=== PATIENT | female | born 1955 | race Caucasian/White ===

== ENCOUNTER → 2016-06-04 | Outpatient (CLI) | payer OTHER ==
[2016-06-04 18:13] LABS: THYROID STIMULATING HORMONE 3.26 uIu/ml (0.300-4.500)
[2016-06-04 18:19] LABS: BASO % 0.7 %; BASO ABS # 0.04 K/uL (0-0.2); COMPLETE YES; EOS % 3.1 %; HEMATOCRIT 41.5 % (37-47); IG% 0.3 %; LYMPH % 28.9 %; MEAN CELL VOLUME 84.9 fL (80-100); MEAN PLATELET VOLUME 10.2 fL (7.4-10.4); MONO % 8.2 %; NEUT % 58.8 %; PLATELET COUNT 270 K/uL (130-400); RED BLOOD COUNT 4.89 M/uL (4.2-5.4); WHITE BLOOD COUNT 5.88 K/uL (4.8-10.8)
[2016-06-04 18:27] LABS: RATIO 5.6 mcg/mg (0-30.0)
[2016-06-05 05:48] LABS: ESTIMATED AVERAGE GLUCOSE 126 mg/dl; HA1C FLAG Normal (Normal)
== END | disposition home or self-care (01) ==
LOC: C.LABMFLN 10:02
PROVIDERS: ATTEND Family Medicine
DX: R73.01 Impaired fasting glucose (principal); D64.9 Anemia, unspecified

== ENCOUNTER → 2017-02-05 | Outpatient (CLI) | payer OTHER ==
[2017-02-05 14:07] LABS: ESTIMATED AVERAGE GLUCOSE 128 mg/dl; HA1C FLAG Normal (Normal)
== END | disposition home or self-care (01) ==
LOC: C.LABMFLN 11:43
PROVIDERS: ATTEND Family Medicine
DX: R73.01 Impaired fasting glucose (principal); E11.22 Type 2 diabetes mellitus with diabetic chronic kidney disease; N18.2 Chronic kidney disease, stage 2 (mild)

== ENCOUNTER → 2017-07-24 | Outpatient (CLI) | payer OTHER ==
[2017-07-24 19:11] LABS: ALT/SGPT 31 U/L (12-78); BLOOD UREA NITROGEN 22 mg/dl (7-18); CALCIUM 9.2 mg/dl (8.5-10.1); CARBON DIOXIDE 30 mmol/L (21-32); CREATININE 1.18 mg/dl (0.60-1.20); GLUCOSE 86 mg/dl (70-99); POTASSIUM 4.2 mmol/L (3.5-5.1); SODIUM 137 mmol/L (136-145)
[2017-07-24 19:21] LABS: CHOLESTEROL 203 mg/dl (0-200); LDL CHOLESTEROL (DIRECT) 130 mg/dl
[2017-07-25 07:40] LABS: HEMOGLOBIN A1C 6.2 % (4.5-5.6)
== END | disposition home or self-care (01) ==
LOC: C.LABMFLN 11:47
PROVIDERS: ATTEND Family Medicine
DX: E11.22 Type 2 diabetes mellitus with diabetic chronic kidney disease (principal); N18.2 Chronic kidney disease, stage 2 (mild)

== ENCOUNTER 2020-08-08 08:30 | Inpatient (IN) ==
--- NOTE | 2020-07-20 15:48 | PAT Medication Instructions ---
Medication Instructions Date of Service July 20, 2020 Home Medications Medication Instructions Recorded hydrocodone 7.5 mg-acetaminophen 2 tab PO HS PRN #30 tab 09/27/19 325 mg tablet metformin 500 mg tablet 500 mg PO QAM #30 tab 04/05/20 lisinopril 5 mg tablet 5 mg PO QAM #90 tab 06/04/20 benztropine 0.5 mg tablet 0.5 mg PO BID #180 tab 06/22/20 hydrocodone 7.5 mg-acetaminophen 325 mg tablet 2 tab PO HS PRN bupropion HCl 150 mg PO QAM cimetidine 800 mg PO QAM paroxetine HCl 60 mg PO PM metformin 500 mg tablet 500 mg PO QAM lisinopril 5 mg tablet 5 mg PO QAM benztropine 0.5 mg tablet 0.5 mg PO BID acetaminophen 325 mg PO QID PRN atorvastatin 10 mg PO QAM cetirizine [Allergy Relief (cetirizine)] 10 mg PO QAM ibuprofen 800 mg PO Q6H PRN levothyroxine 25 mcg PO QAM ASK your surgeon for instructions ibuprofen 800 mg PO Q6H PRN DO NOT take the morning of surgery metformin 500 mg tablet 500 mg PO QAM lisinopril 5 mg tablet 5 mg PO QAM cetirizine [Allergy Relief (cetirizine)] 10 mg PO QAM Take morning of surgery With a small sip of water, OTHERWISE NOTHING TO EAT OR DRINK AFTER MIDNIGHT: bupropion HCl 150 mg PO QAM cimetidine 800 mg PO QAM acetaminophen 325 mg PO QID PRN (okay to take up to 4 hours prior to surgery if needed) atorvastatin 10 mg PO QAM levothyroxine 25 mcg PO QAM benztropine 0.5 mg tablet 0.5 mg PO BID Take evening before surgery hydrocodone 7.5 mg-acetaminophen 325 mg tablet 2 tab PO HS PRN (if needed) paroxetine HCl 60 mg PO PM benztropine 0.5 mg tablet 0.5 mg PO BID acetaminophen 325 mg PO QID PRN (if needed) Other Notes If you have any questions please call us at [phone] or [phone] or [phone] or [phone]
--- NOTE | 2020-07-24 11:38 | Anesthesiology Consultation ---
Date of Service July 24, 2020 Assessment & Plan (1) Encounter for pre-operative examination: - COVID screening: Per assessment on 07/24: Travel screen negative, no known COVID-19 positive contacts or current COVID-19 related symptoms. Surgeon arranging preop COVID testing (scheduled 08/02; [facility]). Awaiting results. - Check BSG AM DOS - Possible difficult intubation: d/t anatomy and decreased cervical extension Chart Review Chart Review: Acceptable Risk for Surgery (pending surgeon-ordered PCP clearance) and Patient seen in Pre Admission Testing Teaching & Discussion Pre-Anesthesia Teaching/Discussion Notes: Instructed NPO after midnight before surgery,except medications with 15 cc of water. Medication instructions provided according to the PAT guidelines. History Surgery Operation Date: 08/08/20 11:05 Proposed Procedures p L4-L5 Posterior Decompression Fusion Instrumentation - George John DO Height/Weight Height: 5 ft 4.5 in Weight: 113.5 kg Allergies Allergy/AdvReac Type Severity Reaction Status Date / Time morphine Allergy Severe Difficulty Verified 07/10/20 11:16 Breathing Penicillins Allergy Unknown Hives, Rash Verified 07/24/20 11:34 Medications Home Medications Medication Instructions Recorded Confirmed Last Taken hydrocodone 7.5 mg-acetaminophen 2 tab PO HS PRN #30 tab 09/27/19 07/10/20 Unknown 325 mg tablet bupropion HCl 150 mg PO QAM 03/29/20 07/10/20 Unknown cimetidine 800 mg PO QAM 03/29/20 07/10/20 Unknown paroxetine HCl 60 mg PO PM 03/29/20 07/10/20 Unknown metformin 500 mg tablet 500 mg PO QAM #30 tab 04/05/20 07/10/20 Unknown lisinopril 5 mg tablet 5 mg PO QAM #90 tab 06/04/20 07/10/20 Unknown benztropine 0.5 mg tablet 0.5 mg PO BID #180 tab 06/22/20 07/10/20 Unknown acetaminophen 325 mg PO QID PRN 07/10/20 07/10/20 Unknown atorvastatin 10 mg PO QAM 07/10/20 07/10/20 Unknown cetirizine [Allergy Relief 10 mg PO QAM 07/10/20 07/10/20 Unknown (cetirizine)] ibuprofen 800 mg PO Q6H PRN 07/10/20 07/10/20 Unknown levothyroxine 25 mcg PO QAM 07/10/20 07/10/20 Unknown Past Medical History Medical History (Updated 07/24/20 @ 11:57 by Sindy Reed) Anxiety Asthma controlled, no inhalers Carpal tunnel syndrome R/L Degenerative disc disease Depression (Benztropine to use in conjunction with depression medications) Diabetes mellitus, type 2 NIDDM GERD (gastroesophageal reflux disease) controlled Hyperlipidemia Hypertension Hypothyroidism Morbid obesity Osteoarthritis Overactive bladder Uterine cancer 6 yrs ago > hysterectomy, no chemo Exercise / Class Metabolic Activity II 4-5 Yardwork/Stairs/Walk up hill (generally one flight of stairs (no chest pain, no sob) but if significant LE radiculopathy at time, does have occasional SOB with flight of stairs) Past Family History Family History Mother Myocardial infarction Cancer Diabetes Father Heart disease Brother Diabetes Past Surgical History Surgical History History of delivery x2 History of colonoscopy History of hysterectomy History of strabismus surgery [place] teeth extracted Past Anesthesia History No Hx of Anesthesia Complications and No Family Hx of Anesthesia Complications History of PONV No Hx of PONV and No Hx of Motion Sickness Social History Smoking Status: Never smoker Do You Dip or Chew Tobacco: No Hx Alcohol Use: No Hx Substance Use: No substance use type: does not use Review of Systems Patient denies chest pain, shortness of breath, dyspnea on exertion, joint pain, reflux, cough, wheezing, palpitations. Physical Exam Vital Signs VITALS BP 118/79 P 79 TEMP 98.6 SP02 94%RA RESP 16 PHYSICAL Decreased cervical extension range of motion. Full TMJ range of motion. TMD 3.5 finger breaths Mallampati Score 4 (small oral opening) Dentition: missing side Lungs: clear throughout to auscultation Cardiac: regular rate and rhythm, no murmurs noted Spine: normal Carotid arteries: negative bruit Extremities: no edema Thick neck Testing Laboratory Results 07/24/20 12:08 07/24/20 12:08 PT 10.1 Seconds (9.0-12.0) 07/24/20 12:08 INR 1.0 (0.9-1.1) 07/24/20 12:08 APTT 26.8 Seconds (21.0-31.0) 07/24/20 12:08 Urine Color Yellow 07/24/20 12:08 Urine Appearance Clear (Clear) 07/24/20 12:08 Urine pH 5.5 (4.5-7.5) 07/24/20 12:08 Ur Specific [place] 1.022 (1.000-1.030) 07/24/20 12:08 Urine Protein Negative (Negative) 07/24/20 12:08 Urine Glucose (UA) Negative (Negative) 07/24/20 12:08 Urine Ketones Negative (Negative) 07/24/20 12:08 Urine Nitrite Negative (Negative) 07/24/20 12:08 Ur Leukocyte Esterase Negative (Negative) 07/24/20 12:08 Blood Type A Positive 07/24/20 12:08 Antibody Screen NEGATIVE 07/24/20 12:08 03/07/20 HGBA1C 6.6% Electrocardiogram Date: 04/17/20 Findings: + NSR @ (75) Chest X-Ray Date: 04/17/20 Findings: + NAD
[2020-07-24 13:04] LABS: Basophils # (auto) 0.04 K/uL (0-0.2); Basophils % (auto) 0.8 %; Eosinophils # (auto) 0.17 K/uL (0-0.5); Eosinophils % (auto) 3.2 %; Lymphocytes # (auto) 1.08 K/uL (1.2-3.4); Lymphocytes % (auto) 20.4 %; Mean Corpuscular Hemoglobin 28.2 pg (25-34); Mean Corpuscular Hgb Conc 33.3 g/dL (32-36); Mean Corpuscular Volume 84.6 fL (80-100); Mean Platelet Volume 10.7 fL (7.4-10.4); Monocytes # (auto) 0.49 K/uL (0.11-0.59); Monocytes % (auto) 9.2 %; Neutrophils # (auto) 3.52 K/uL (1.4-6.5); Neutrophils % (auto) 66.4 %; Platelet Count 293 K/uL (130-400); RDW Coefficient of Variation 14.5 % (11.5-14.5); Red Blood Count 4.61 M/uL (4.2-5.4)
[2020-07-24 13:10] LABS: BUN Creatinine Ratio 18.5 (10-20); Calcium 8.8 mg/dl (8.5-10.1); Creatinine Clr Calc Pharmacy 67.7 ml/min; Est GFR (African American) 64.7; Est GFR (Non-African American) 55.8; Potassium 4.8 mmol/L (3.5-5.1)
[2020-07-24 13:13] LABS: Appearance Urine Clear (Clear); Bilirubin Urine Negative (Negative); Blood Urine Negative (Negative); Color Urine Yellow; Glucose Urine UA Negative (Negative); Ketones Urine Negative (Negative); Leukocyte Esterase Urine Negative (Negative); Nitrite Urine Negative (Negative); Protein Urine Negative (Negative); Specific Gravity Urine 1.022 (1.000-1.030); Urobilinogen Urine Negative (Negative); pH Urine 5.5 (4.5-7.5)
[2020-07-24 13:16] LABS: Partial Thromboplastin Time 26.8 Seconds (21.0-31.0); Prothrombin Time 10.1 Seconds (9.0-12.0)
[~2020-08-08 08:30] MED LIST: ACETAMINOPHEN 500 MG TAB PO SCH; CLINDAMYCIN 600 MG/54 ML BAG IV SCH; CeleBREX 200 MG CAP PO SCH; GABAPENTIN 600 MG DOSE PO SCH; LR 15ML/HR IV SCH; MIDAZOLAM HCL 1 MG/ML 2ML VIAL ONE; fentaNYL citrate 100 MCG/2 ML VIAL ONE
--- NOTE | 2020-08-08 09:22 | History & Physical Bridge Note ---
Date of Service August 08, 2020 History & Physical Bridge Note I have examined the patient, reviewed the History & Physical and in the interval since the performance of the History & Physical I have noted the following changes of clinical significance: no changes noted
--- NOTE | 2020-08-08 09:24 | History & Physical Report ---
Date of Service August 08, 2020 Assessment & Plan (1) Neurogenic claudication due to lumbar spinal stenosis: Admission and Anticipated Discharge Date Admission Date: L4-L5 decompression fusion History of Present Illness Chief Complaint: Back and leg pain Primary Care Provider: Arsenio Cadena MD This is a 64-year-old female who presents with chronic persistent back and leg pain. Failing course of nonoperative care she is here for surgical invention. Allergies Allergy/AdvReac Type Severity Reaction Status Date / Time morphine Allergy Severe Difficulty Verified 08/08/20 09:07 Breathing Penicillins Allergy Unknown Hives, Rash Verified 08/08/20 09:07 Home Medications Medication Instructions Recorded Confirmed Type bupropion HCl 150 mg PO QAM 03/29/20 08/08/20 History cimetidine 800 mg PO QAM 03/29/20 08/08/20 History paroxetine HCl 60 mg PO PM 03/29/20 08/08/20 History metformin 500 mg tablet 500 mg PO QAM #30 tab 04/05/20 08/08/20 Rx lisinopril 5 mg tablet 5 mg PO QAM #90 tab 06/04/20 08/08/20 Rx benztropine 0.5 mg tablet 0.5 mg PO BID #180 tab 06/22/20 08/08/20 Rx acetaminophen 325 mg PO QID PRN 07/10/20 08/08/20 History atorvastatin 10 mg PO QAM 07/10/20 08/08/20 History cetirizine [Allergy Relief 10 mg PO QAM 07/10/20 08/08/20 History (cetirizine)] ibuprofen 800 mg PO Q6H PRN 07/10/20 08/08/20 History levothyroxine 25 mcg PO QAM 07/10/20 08/08/20 History Past Med/Surg History Medical History (Updated 08/08/20 @ 09:23 by George John DO) Anxiety Asthma controlled, no inhalers Carpal tunnel syndrome R/L Degenerative disc disease Depression (Benztropine to use in conjunction with depression medications) Diabetes mellitus, type 2 NIDDM GERD (gastroesophageal reflux disease) controlled Hyperlipidemia Hypertension Hypothyroidism Morbid obesity Osteoarthritis Overactive bladder Uterine cancer 6 yrs ago > hysterectomy, no chemo Surgical History History of delivery x2 History of colonoscopy History of hysterectomy History of strabismus surgery [place] teeth extracted Family History Mother Myocardial infarction Cancer Diabetes Father Heart disease Brother Diabetes Social History (Updated 12/08/18 @ 09:40 by Zahida Sarkar MA) Smoking Status: Never smoker Second Hand Exposure: No; Do You Dip or Chew Tobacco: No; Tobacco Cessation Education Requested by Patient: No Hx Alcohol Use: No Hx Substance Use: No Preferred Language: Portuguese Communication Ability: Effective Liquor Maker Required: No Beliefs That Will Affect Care: None Current Living Situation: Spouse Other Information That Helps Us Care for You: No Feels Safe at Home: Yes Safety Concerns: Feels Safe At This Time Assistive Devices: Glasses Physical Exam Physical Exam: Patient is alert and oriented Heart regular rate and rhythm Lungs clear to auscultation
[2020-08-08] MEDS ORDERED: ONDANSETRON INJ 2 MG/ML 2 ML VIAL IV PRN ×2 (09:32→13:03)
[2020-08-08] MEDS ORDERED: ATROPINE SULFATE 0.1 MG/ML 10ML SYR IV PRN (09:32)
[2020-08-08] MEDS ORDERED: fentaNYL citrate 100 MCG/2 ML VIAL IV PRN (09:32)
[2020-08-08] MEDS ORDERED: ePHEDrine sulfate 50 MG/ML AMP IV PRN (09:32)
[2020-08-08] MEDS ORDERED: BUPIVACAINE/EPINEPHRINE 0.5% MPF 1:200,000 30 ML VIAL ONE (09:38)
[2020-08-08] MEDS ORDERED: BACITRACIN INJ 50,000 UNIT VIAL ONE (09:38)
[2020-08-08] MEDS ORDERED: NEOSTIGMINE METHYLSULFATE 1 MG/ML 10ML VIAL ONE (10:26)
[2020-08-08] MEDS ORDERED: GLYCOPYRROLATE 0.2 MG/ML VIAL ONE (10:26)
[2020-08-08] MEDS ORDERED: LIDOCAINE HCL 2% 2 ML VIAL/AMP(20MG/ML) INFIL ONE (10:26)
[2020-08-08] MEDS ORDERED: DEXAMETHASONE SOD INJ 4 MG/ML VIAL ONE (10:26)
[2020-08-08] MEDS ORDERED: PROPOFOL IV EMULSION 10 MG/ML 20 ML VIAL IV ONE (10:26)
[2020-08-08] MEDS ORDERED: ROCURONIUM BROMIDE 10 MG/ML 5 ML VIAL IV ONE (10:26)
[2020-08-08] MEDS ORDERED: ONDANSETRON INJ 2 MG/ML 2 ML VIAL ONE (10:26)
[2020-08-08] MEDS ORDERED: ePHEDrine sulfate 50 MG/ML SYR ONE (10:38)
[2020-08-08] MEDS ORDERED: FLOSEAL HEMOSTATIC MATRIX 10ML TOP ONE (11:02)
--- NOTE | 2020-08-08 11:40 | Operative Report ---
Post Operative Report Pre & Post Diagnosis Operation Date: 08/08/20 09:55 Pre-Op Diagnosis: #1 lumbar spinal stenosis with neurogenic claudication. #2 spondylolisthesis L4-L5. #3 morbid obesity Post-Op Diagnosis: Same I identified the patient and participated in the time-out.: Yes Procedure Operation Date: 08/08/20 09:55 Actual Procedures #1 lumbar decompression bilateral medial facetectomies and foraminotomies L3-4 and L4-5. #2 posterior spinal fusion L4-L5. #3 placement posterior instrumentation L4-5. #4 interbody fusion L4-5. #5 placement peek cage 12 x 22 mm at L4-L5. #6 placement locally harvested morselized autograft in the posterior gutters. #7 placement of I factor interbody space and posterior lateral gutters. Surgeon George John, DO Fellmongery Worker Pam Charles Estimated Blood Loss 150 Findings See Below Patient is 5 foot 4 inches tall weighing over 113 kg with a BMI in excess of 42. Patient's body habitus did contribute to significant technical difficulty requiring her deepest retractors and longest instruments in order to perform her procedure. This at least 50% increase to the operative time. Specimens None Indications This is a 64-year-old female who presents above-mentioned diagnosis after failing course of nonoperative care is here for surgical invention. Description of Procedure Patient was met with identified informed consent obtained. Patient was then taken to the operative suite underwent an patient placed in prone position on a Jose M table atop Gonzalo frame. All bony prominences well-padded eyes inspected to ensure no external pressure placed upon them. This point lumbar spine was prepped and draped in a sterile fashion. Sharp dissection with the assistance of Bovie cautery performed down to and exposing the lamina and transverse processes of L for L5. From caudal to cephalad fashion complete laminectomy L4 partial laminectomy of L3 was performed including bilateral medial facetectomies and foraminotomies addressing severe spinal stenosis. Pedicle screws were then placed in L4 and L5 bilaterally with assistance of fluoroscopy and the proper sized oscar placed. By way of a transforaminal approach and left complete discectomy was performed endplates curetted to subcortical being bone and a 12 x 22 mm peek cage filled with I factor tapped in position. The rods were then locked in final position bilaterally. The transverse processes of L4 and L5 burred to subcortically bone. I factor combined with locally harvested morselized autograft was placed in the posterior gutters. 15 round MOSES drain inserted. The incision was then closed with 1 Vicryl the fascia 2-0 Vicryl subcutaneously and 4 Monocryl for final skin closure. Steri-Strip sterile dressings placed. Patient will continue PACU stable condition. Please note spinal cord monitoring was utilized at the procedure no changes noted. Lastly Pam Charles was present at the entire procedure patient positioning complex portions of the surgery and final skin closure. I attest to the content of the Intraoperative Record and any orders documented therein. Any exceptions are noted below.
--- NOTE | 2020-08-08 11:45 | Fluoroscopy Report ---
FL lumbar spine 2-3V CLINICAL HISTORY: L4-5 DECOMPRESSION/FUSION/INTERBODY COMPARISON STUDY: None. FLUOROSCOPY TIME: 18 seconds. FLUOROSCOPIC IMAGES: 2 FINDINGS: Fluoroscopy was provided during L4-L5 discectomy with interbody spacer placement. There is a posterior decompression and bilateral pedicle screw placement at the L4 and L5 levels. Hardware is intact. IMPRESSION: Fluoroscopy provided for L4-L5 discectomy, posterior decompression and bilateral pedicle screw fusion. ACT 112: Negative or not required by law. Electronically signed by: Skip Gomez M.D. 08/08/2020 11:43 AM
--- NOTE | 2020-08-08 12:33 | Anesthesiology Progress Note ---
Date of Service August 08, 2020 Anesthesia Post Procedure Vital Signs Vital Signs: Temp Pulse Pulse Resp BP BP Pulse Ox 08/08/20 12:25 96 H 17 136/85 95 08/08/20 12:15 90 18 160/88 H 95 08/08/20 12:05 89 16 158/103 H 97 08/08/20 11:59 98.1 F 89 16 159/99 H 97 08/08/20 09:17 98.4 F 93 H 18 157/101 H 95 Pain Intensity Left Leg: Pain Intensity: 7 Transfer of Care Handoff Completed per policy Notes Mental Status: alert / awake / arousable and participated in evaluation Patient Amnestic to Procedure: Yes Nausea / Vomiting: adequately controlled Pain: adequately controlled Airway Patency, RR, SpO2: stable & adequate BP & HR: stable & adequate Hydration State: stable & adequate Anesthetic Complications: no major complications apparent and Pt Satisfied with anesthetic care
[2020-08-08] MEDS ORDERED: DO NOT ADMINISTER FLU VACCINE PRN (13:03)
[2020-08-08] MEDS ORDERED: DO NOT ADMINISTER PNEUMOCOCCAL VACCINE PRN (13:03)
[2020-08-08] MEDS ORDERED: hydrOXYzine HCl 25 MG TAB PO PRN (13:03)
[2020-08-08] MEDS ORDERED: HYDROmorphone INJ 1 MG/ML SYRINGE IV PRN (13:03)
[2020-08-08] MEDS ORDERED: LORazepam 0.5 MG TAB PO PRN (13:03)
[2020-08-08] MEDS ORDERED: FAMOTIDINE 20 MG TAB PO PRN (13:03)
[2020-08-08] MEDS ORDERED: MAGNESIUM HYDROXIDE SUSP 30 ML UDC PO PRN (13:03)
[2020-08-08] MEDS ORDERED: HYDROmorphone INJ 0.5 MG/0.5 ML SYR IV PRN (13:03)
[2020-08-08] MEDS ORDERED: bisacodyL 10 MG SUPP PR PRN (13:03)
[2020-08-08] MEDS ORDERED: ALUMINUM/MAGNESIUM SUSP 30 ML UDC PO PRN (13:03)
[2020-08-08] MEDS ORDERED: ONDANSETRON 4 MG OD TAB PO PRN (13:03)
[2020-08-08] MEDS ORDERED: ACETAMINOPHEN 500 MG TAB PO PRN (13:03)
[2020-08-08] MEDS ORDERED: SOD PHOSPHATE/SOD BIPHOSPHATE ENEMA 132 ML BTL PR PRN (13:03)
[2020-08-08] MEDS ORDERED: NALOXONE HCL 0.4 MG/1 ML VIAL/CARP IV PRN (13:03)
[2020-08-08] MEDS ORDERED: ACETAMINOPHEN 1,000 MG/100 ML VIAL IV PRN (13:03)
[2020-08-08] MEDS ORDERED: LORazepam 0.5 MG/1 ML VIAL IV PRN (13:03)
[2020-08-08] MEDS ORDERED: diphenhydrAMINE Capsule 25 MG CAP PO PRN (13:03)
[2020-08-08] MEDS ORDERED: METOCLOPRAMIDE HCL INJ 5 MG/ML 2 ML VIAL IV PRN (13:03)
[2020-08-08] MEDS ORDERED: PROMETHAZINE HCL 12.5 MG in SODIUM CHLORIDE 0.9% 50 ML IV PRN (13:20)
[2020-08-08] MEDS ORDERED: PHARMACY GLYCEMIC MGMT CONSULT PRN (13:21)
[2020-08-08] MEDS: SODIUM CHLORIDE 0.9% 1000ML 1,000 ML IV SCH ×3 (13:50→22:23)
[2020-08-08] MEDS: KETOROLAC TROMETHAMINE 15 MG/ML VIAL IV SCH ×2 (13:50→20:53)
[2020-08-08] MEDS ORDERED: NovoLIN-N (NPH) PER UNIT CHARGE SQ ONE (14:15)
--- NOTE | 2020-08-08 14:28 | Pharmacy Report ---
Pharmacy Glycemic Short Note 2 - Date of Service August 08, 2020 - Glycemic Short BSG Results (Last 24 hours): 08/08/20 08/08/20 08:48 12:12 POC Glucose 120 H 133 H OUTPATIENT ANTIDIABETIC REGIMEN: * Metformin * A1c outdated but 6.6%. Repeat ordered for tomorrow ASSESSMENT: * 64 yo F POD o w Dr. John for spinal stenosis on metformin monotherapy as an outpatient * Pre and post-op BSG's good * Dexamethasone overriden in OR, not returned * Will initiate low-dose NPH in the perioperative period. Patient may require one additional dose tomorrow AM * Will initiate weight-based Novolog with slightly tigher CHO due to steroids and one over night check as they are post-op PLAN FOR INPATIENT GLYCEMIC CONTROL: * Hold outpatient oral diabetes medications * Basal insulin * NPH 20 units SQ x1 now * Bolus insulin * NovoLog per scale ACHS or Q6hrs while NPO, with one overnight check * Goal Range: Low 110 mg/dL - High 140 mg/dL * Correction Factor: 20 mg/dL/unit * Nutritional / Prandial insulin per carb ratio of 1 unit per 6 grams CHO consumed
--- NOTE | 2020-08-08 16:14 | Hospitalist Consultation ---
Date of Consultation August 08, 2020 Assessment & Plan (1) Neurogenic claudication due to lumbar spinal stenosis: 08/08/20 L4-L5 Posterior Decompression Fusion Instrumentation Dr John (2) Diabetes mellitus: typically is on metformin once a day, given nph 20 units to combat affects of decadron used intraoperatively, will have ssi and carbohydrate conservative diet, glycemic pharmacy management on lisinopril for renoprotective affects hold on pod #1 and start on 08/10/20 (3) Anxiety: continues on paxil and wellbutrin (4) HLD (hyperlipidemia): atorvastatin 10 (5) Hypothyroidism: continues on synthroid 25 mcg, last tsh 03/09 was normal (6) GERD (gastroesophageal reflux disease): pepcid 40 mg a day History of Present Illness Attending Physician: George John DO History of Present Illness Pt is s/p L4-L5 Posterior Decompression Fusion Instrumentation, she has a history of obesity with bmi of 42, diabetes, hypothyroidism, anxiety and GERD, Postoperatively the patient is still fairly sedate she is however maintaining good saturations. She had snoring respirations. She woke easily. She denies having a history of sleep apnea. Allergies Allergy/AdvReac Type Severity Reaction Status Date / Time morphine Allergy Severe Difficulty Verified 08/08/20 09:07 Breathing Penicillins Allergy Unknown Hives, Rash Verified 08/08/20 09:07 Home Medications Medication Instructions Recorded Confirmed Type bupropion HCl 150 mg PO QAM 03/29/20 08/08/20 History cimetidine 800 mg PO QAM 03/29/20 08/08/20 History paroxetine HCl 60 mg PO PM 03/29/20 08/08/20 History metformin 500 mg tablet 500 mg PO QAM #30 tab 04/05/20 08/08/20 Rx lisinopril 5 mg tablet 5 mg PO QAM #90 tab 06/04/20 08/08/20 Rx benztropine 0.5 mg tablet 0.5 mg PO BID #180 tab 06/22/20 08/08/20 Rx acetaminophen 325 mg PO QID PRN 07/10/20 08/08/20 History atorvastatin 10 mg PO QAM 07/10/20 08/08/20 History cetirizine [Allergy Relief 10 mg PO QAM 07/10/20 08/08/20 History (cetirizine)] ibuprofen 800 mg PO Q6H PRN 07/10/20 08/08/20 History levothyroxine 25 mcg PO QAM 07/10/20 08/08/20 History Patient History Medical History (Updated 08/08/20 @ 16:11 by Fan Domingo MD) Anxiety Asthma controlled, no inhalers Carpal tunnel syndrome R/L Degenerative disc disease Depression (Benztropine to use in conjunction with depression medications) Diabetes mellitus, type 2 NIDDM GERD (gastroesophageal reflux disease) controlled Hyperlipidemia Hypertension Hypothyroidism Morbid obesity Osteoarthritis Overactive bladder Uterine cancer 6 yrs ago > hysterectomy, no chemo Surgical History History of delivery x2 History of colonoscopy History of hysterectomy History of strabismus surgery [place] teeth extracted Family History Mother Myocardial infarction Cancer Diabetes Father Heart disease Brother Diabetes Social History (Updated 12/08/18 @ 09:40 by Zahida Sarkar MA) Smoking Status: Never smoker Second Hand Exposure: No; Do You Dip or Chew Tobacco: No; Tobacco Cessation Education Requested by Patient: No Hx Alcohol Use: No Hx Substance Use: No Preferred Language: Tristanian Communication Ability: Effective Time Study Technologist Required: No Beliefs That Will Affect Care: None Current Living Situation: Spouse Other Information That Helps Us Care for You: No Feels Safe at Home: Yes Safety Concerns: Feels Safe At This Time Assistive Devices: Walker Review of Systems Review of Systems: Unobtainable due to cognitive status Patient is fairly sedated post procedure she is arousable tells me when she is knows where she is she denies any significant pain or discomfort however she falls easily back to sleep Physical Exam Physical Exam: The patient appeared in no particular distress but was sedated Vital signs as documented. Lungs are clear to auscultation decreased breath sounds at the bases Cardiac exam, Rhythm is regular.. No murmurs, rubs or gallops. Abdominal exam reveals normal bowel sounds, soft non tender, no masses is slightly protuberant with regard to her abdomen Extremities are nonedematous and both pedal pulses are normal. Capillary refill bilaterally she is able to wiggle both her toes Neurologic exam is alert and oriented x3 upon awakening but easily falls back to sleep unable to reliably do confrontational strength and sensation testing although she states she can feel my touch her feet and she can wiggle her toes Skin is without bruises or rashes unable inspect the operative site at this time Results & Data Results & Data ([facility]) Vital Signs (Past 12 Hours) Vital Signs Temp Pulse Pulse Resp BP BP Pulse Ox 08/08/20 15:47 98.1 F 93 H 16 133/84 99 08/08/20 14:45 97 H 16 123/79 98 08/08/20 13:45 127/82 96 08/08/20 13:11 89 16 132/81 98 08/08/20 12:35 97.7 F 94 H 14 141/72 H 96 08/08/20 12:25 96 H 17 136/85 95 08/08/20 12:15 90 18 160/88 H 95 08/08/20 12:05 89 16 158/103 H 97 08/08/20 11:59 98.1 F 89 16 159/99 H 97 08/08/20 09:17 98.4 F 93 H 18 157/101 H 95 PG Care Time/CCT Total # of Minutes Spent Total Time Spent with Patient: Total time spent is greater than 50% in coordination of care (as documented) at patient's floor/unit and/or counseling patient: Coding Level of Care Code 91310 Inpt Consult Level 3 Diagnoses Neurogenic claudication due to lumbar spinal stenosis M48.062 Diabetes mellitus E11.9 Anxiety F41.9 HLD (hyperlipidemia) E78.5 Hypothyroidism E03.9 GERD (gastroesophageal reflux disease) K21.9
[2020-08-08] MEDS: CLINDAMYCIN 600 MG in DEXTROSE 5% 50 ML IV SCH (17:48)
[2020-08-08] MEDS: INSULIN ASPART 100 UNITS/ML 3 ML PEN SC SCH ×2 (18:31→21:42)
[2020-08-08] MEDS: PARoxetine HCL 20 MG TAB PO SCH (20:54)
[2020-08-08] MEDS: DOCUSATE SODIUM/SENNA 50/8.6MG TAB PO SCH (20:54)
[2020-08-08] MEDS: BENZTROPINE MESYLATE 0.5 MG TAB PO SCH (20:54)
[2020-08-09] MEDS ORDERED: INSULIN ASPART 100 UNITS/ML 3 ML PEN SC SCH (02:00)
[2020-08-09] MEDS: CLINDAMYCIN 600 MG in DEXTROSE 5% 50 ML IV SCH (02:09)
[2020-08-09] MEDS: KETOROLAC TROMETHAMINE 15 MG/ML VIAL IV SCH ×2 (02:09→08:53)
[2020-08-09] MEDS: POLYETHYLENE (MIRALAX) 17 GM PACK PO SCH ×4 (05:17→23:52)
[2020-08-09] MEDS: LEVOTHYROXINE SODIUM 25 MCG TABLET PO SCH (05:18)
[2020-08-09 08:18] LABS: Basophils # (auto) 0.01 K/uL (0-0.2); Basophils % (auto) 0.1 %; Eosinophils # (auto) 0.01 K/uL (0-0.5); Eosinophils % (auto) 0.1 %; Hematocrit (blood only) 33.7 % (37-47); Hemoglobin 10.9 g/dL (12.0-16.0); Immature Granulocytes # (auto) 0.01 K/uL (0.00-0.02); Immature Granulocytes % (auto) 0.1 %; Lymphocytes # (auto) 1.24 K/uL (1.2-3.4); Lymphocytes % (auto) 15.2 %; Mean Corpuscular Hemoglobin 27.4 pg (25-34); Mean Corpuscular Hgb Conc 32.3 g/dL (32-36); Mean Corpuscular Volume 84.7 fL (80-100); Mean Platelet Volume 10.1 fL (7.4-10.4); Monocytes # (auto) 0.72 K/uL (0.11-0.59); Monocytes % (auto) 8.8 %; Neutrophils # (auto) 6.16 K/uL (1.4-6.5); Neutrophils % (auto) 75.7 %; Platelet Count 252 K/uL (130-400); RDW Coefficient of Variation 14.6 % (11.5-14.5); RDW Standard Deviation 45.6 fL (36.4-46.3); Red Blood Count 3.98 M/uL (4.2-5.4); White Blood Count 8.15 K/uL (4.8-10.8)
[2020-08-09 08:39] LABS: BUN Creatinine Ratio 19.1 (10-20); Calcium 8.5 mg/dl (8.5-10.1); Creatinine Clr Calc Pharmacy 87.5 ml/min; Est GFR (African American) 88.3; Est GFR (Non-African American) 76.2; Potassium 3.9 mmol/L (3.5-5.1)
[2020-08-09] MEDS: buPROPion SR 150 MG TABCR PO SCH (08:53)
[2020-08-09] MEDS: CETIRIZINE HCL 10 MG TABLET PO SCH (08:53)
[2020-08-09] MEDS: BENZTROPINE MESYLATE 0.5 MG TAB PO SCH ×2 (08:54→19:48)
[2020-08-09] MEDS: ATORVASTATIN 10 MG TAB PO SCH (08:54)
[2020-08-09] MEDS: FAMOTIDINE 20 MG TAB PO SCH (08:54)
[2020-08-09] MEDS ORDERED: lisinopril 5 MG TAB PO SCH (09:00)
[2020-08-09] MEDS: INSULIN ASPART 100 UNITS/ML 3 ML PEN SC SCH ×4 (09:01→20:42)
[2020-08-09 09:18] LABS: Estimated Average Glucose 140 mg/dl; Hemoglobin A1C 6.5 % (4.5-5.6)
--- NOTE | 2020-08-09 12:24 | Orthopedic Progress Note ---
Date of Service August 09, 2020 Assessment & Plan (1) Neurogenic claudication due to lumbar spinal stenosis: Admission and Anticipated Discharge Date Admission Date: August 08, 2020 At this time continue physical therapy monitor MOSES operatively discharge in the next day or so. Subjective Back pain is controlled leg symptoms are markedly improved Physical Exam Physical Exam: Patient is in a chair at the bedside. She is comfortable. Is good strength testing. Results & Data ([facility]) Vital Signs (Past 12 Hours) Vital Signs Temp Pulse Resp BP Pulse Ox 08/09/20 07:15 36.9 C 80 14 105/65 97 08/09/20 03:25 36.4 C L 76 12 122/76 96
--- NOTE | 2020-08-09 13:09 | Pharmacy Report ---
Pharmacy Glycemic Short Note 2 - Date of Service August 09, 2020 - Glycemic Short BSG Results (Last 24 hours): 08/08/20 08/08/20 08/09/20 17:05 21:01 02:15 Glucose POC Glucose 143 H 167 H 103 H 08/09/20 08/09/20 08/09/20 05:23 08:01 08:15 Glucose 114 H POC Glucose 100 H 111 H 08/09/20 12:06 Glucose POC Glucose 84 OUTPATIENT ANTIDIABETIC REGIMEN: * Metformin * A1c 6.5% on 08/09/20 ASSESSMENT: 08/09 * CHO ratio loosened this AM due to steroid effects starting to wear off and lower BSG's overnight and this AM. Loosened further at lunch 2nd trend down in BSG from breakfast to lunch * Dexamethasone resuming tomorrow AM. Will tighten CHO ratio back starting tomorrow AM * Anticipate NPH tomorrow, likely 20 units, but dose dependent on BSG's today and tomorrow AM 08/08 * 64 yo F POD o w Dr. John for spinal stenosis on metformin monotherapy as an outpatient * Pre and post-op BSG's good * Dexamethasone overriden in OR, not returned * Will initiate low-dose NPH in the perioperative period. Patient may require one additional dose tomorrow AM * Will initiate weight-based Novolog with slightly tigher CHO due to steroids and one over night check as they are post-op PLAN FOR INPATIENT GLYCEMIC CONTROL: * Hold outpatient oral diabetes medications * Basal insulin * Hold basal insulin today. NPH to resume tomorrow. Dose dependent on BSG's today and tomorrow AM * Bolus insulin * NovoLog per scale ACHS or Q6hrs while NPO, with one overnight check * Goal Range: Low 110 mg/dL - High 140 mg/dL * Correction Factor: 20 mg/dL/unit * Carb ratio: 8 g CHO/unit now, then 6 g CHO/unit starting tomorrow AM
[2020-08-09] MEDS: traMADol HCL 50 MG TABLET PO PRN (17:35)
--- NOTE | 2020-08-09 17:35 | Hospitalist Progress Note ---
Date of Service August 09, 2020 Assessment & Plan (1) Neurogenic claudication due to lumbar spinal stenosis: 08/08/20 L4-L5 Posterior Decompression Fusion Instrumentation Dr John (2) Diabetes mellitus: typically is on metformin once a day, given nph 20 units to combat affects of decadron used intraoperatively, will have ssi and carbohydrate conservative diet, glycemic pharmacy management on lisinopril for renoprotective affects hold on pod #1 and start on 08/10/20 (3) Anxiety: continues on paxil and wellbutrin (4) HLD (hyperlipidemia): atorvastatin 10 (5) Hypothyroidism: continues on synthroid 25 mcg, last tsh 03/09 was normal (6) GERD (gastroesophageal reflux disease): pepcid 40 mg a day Admission and Anticipated Discharge Date Admission Date: August 08, 2020 Subjective Back pain is resolved, leg symptoms are markedly improved Review of Systems Constitutional: + fatigue and + weakness Respiratory: no cough, no chest congestion and no dyspnea Cardiovascular: no chest pain and no dyspnea on exertion Gastrointestinal: no abdominal pain, no nausea and no vomiting Musculoskeletal: no joint pain and no swelling Integumentary: no rash and no lesions Physical Exam Physical Exam: The patient appeared in no particular distress but was sedated Vital signs as documented. Lungs are clear to auscultation decreased breath sounds at the bases Cardiac exam, Rhythm is regular.. No murmurs, rubs or gallops. Abdominal exam reveals normal bowel sounds, soft non tender, no masses is slightly protuberant with regard to her abdomen Extremities are nonedematous and both pedal pulses are normal. Capillary refill bilaterally she is able to wiggle both her toes Neurologic exam is alert and oriented x3 upon awakening but easily falls back to sleep unable to reliably do confrontational strength and sensation testing although she states she can feel my touch her feet and she can wiggle her toes Skin is without bruises or rashes unable inspect the operative site at this time Results & Data Results & Data ([facility]) Vital Signs (Past 12 Hours) Vital Signs Temp Pulse Resp BP BP Pulse Ox 08/09/20 15:02 97.3 F L 86 16 115/74 98 08/09/20 07:15 98.4 F 80 14 105/65 97 PG Care Time/CCT Total # of Minutes Spent Total Time Spent with Patient: Total time spent is greater than 50% in coordination of care (as documented) at patient's floor/unit and/or counseling patient: Coding Level of Care Code 98239 Subseq Hosp Care Lvl 2 Diagnoses Neurogenic claudication due to lumbar spinal stenosis M48.062 Diabetes mellitus E11.9 Anxiety F41.9 HLD (hyperlipidemia) E78.5 Hypothyroidism E03.9 GERD (gastroesophageal reflux disease) K21.9
[2020-08-09] MEDS: oxyCODONE HCL IR 5 MG TAB (IMMEDIATE RELEASE) PO PRN (18:41)
[2020-08-09] MEDS: DOCUSATE SODIUM/SENNA 50/8.6MG TAB PO SCH (19:48)
[2020-08-09] MEDS: PARoxetine HCL 20 MG TAB PO SCH (19:49)
[2020-08-10] MEDS: oxyCODONE HCL IR 5 MG TAB (IMMEDIATE RELEASE) PO PRN ×2 (03:55→12:57)
[2020-08-10] MEDS: POLYETHYLENE (MIRALAX) 17 GM PACK PO SCH ×2 (06:16→11:42)
[2020-08-10] MEDS: LEVOTHYROXINE SODIUM 25 MCG TABLET PO SCH (06:17)
[2020-08-10] MEDS: traMADol HCL 50 MG TABLET PO PRN (07:27)
[2020-08-10] MEDS: buPROPion SR 150 MG TABCR PO SCH (07:27)
[2020-08-10] MEDS: ATORVASTATIN 10 MG TAB PO SCH (07:28)
[2020-08-10] MEDS: lisinopril 5 MG TAB PO SCH ×2 (07:28→07:33)
[2020-08-10] MEDS: CETIRIZINE HCL 10 MG TABLET PO SCH (07:28)
[2020-08-10] MEDS: BENZTROPINE MESYLATE 0.5 MG TAB PO SCH (07:28)
[2020-08-10] MEDS: FAMOTIDINE 20 MG TAB PO SCH (07:28)
[2020-08-10] MEDS ORDERED: INSULIN ASPART 100 UNITS/ML 3 ML PEN SC SCH ×2 (07:30→11:30)
[2020-08-10] MEDS ORDERED: NovoLIN-N (NPH) PER UNIT CHARGE SQ ONE (08:00)
[2020-08-10] MEDS ORDERED: dexAMETHasone 8 MG in SYRINGE 0 ML IV SCH (09:00)
[2020-08-10] MEDS ORDERED: INSULIN HUMAN NPH SC SCH (09:00)
--- NOTE | 2020-08-10 09:17 | Discharge Summary ---
Date of Service August 10, 2020 Principal Diagnosis Lumbar spinal stenosis with neurogenic claudication Discharge Data Allergies Allergy/AdvReac Type Severity Reaction Status Date / Time morphine Allergy Severe Difficulty Verified 08/08/20 09:07 Breathing Penicillins Allergy Unknown Hives, Rash Verified 08/08/20 09:07 Consultations 08/08/20 13:41 Consult Hospitalist Routine Procedures Performed Operation Date: 08/08/20 09:55 Actual Procedures p L4-L5 Posterior Decompression Fusion Instrumentation, Spinal Cord Monitoring, Application of Bone Graft - George John DO Ordered Studies 08/08/20 09:55 FL lumbar spine 2-3V Routine Hospital Course (1) Neurogenic claudication due to lumbar spinal stenosis: Patient went lumbar decompression fusion tolerates well second orthopedic for postoperative. Postop day 1 she was up and ambulating. Postop day #2 postop day #3 pain was well controlled OMSES drain decreasing probably. Subsequent discharge home. Discharge orders instructions from the chart for further review. Total Time Total Time Spent Total Time Spent (In Minutes): 20 minutes Discharge Plan Discharge Items Patient Disposition: Home - Self-Care Reason For Visit: Spinal stenosis, Lumbar Region without Neurogenic Discharge Diagnosis: Lumbar spinal stenosis with neurogenic claudication Activity: As commented below Non-emergency contact: Primary Care Provider Call non-emergency contact if: you have any medication questions Follow-up/Referrals: Arsenio Cadena MD [Primary Care Provider] - Diet: Regular Addtl Attending Provider Instructions: ACTIVITY RECOMMENDATIONS: SELF CARE INSTRUCTIONS AFTER THORACIC/LUMBAR FUSIONS 1. You may walk to your tolerance. It is good exercise for your legs and back. Expect some back and intermittent leg aches and pains. 2. You may perform "counter-top" level activities (make a sandwich, carl with a project, etc.). 3. No bending or lifting of more than 10 pounds or back twisting of any nature (roll like a log when turning in bed). 4. You may ride in a car for 20-30 minutes at a time. No driving until after your first visit with your doctor. 5. Frequent changes of position and restricting sitting to 30 minutes at a time will help limit the amount of back spasms and stiffness you may experience. 6. You may discontinue the use of ambulatory aids (cane, crutches, etc.) once your strength and confidence allow. 7. You may gasoline attendant the shower and let water strike your incision when you arrive home at least once daily. Do not take a tub bath, sit in a hot tub or go into a swimming pool until after your first recheck in the office. SPECIAL CARE INSTRUCTIONS: VERY IMPORTANT TO READ AND REVIEW A. Your surgical incision has been closed with a cosmetic suture under the skin that will dissolve in about 6 weeks. In 14 days, you can use a pair of clean scissors and cut the suture that is left outside of the skin at the ends of your incision. 1. The small skin tapes can be removed 7 days after surgery if they have not fallen off by that point. 2. You may keep the wound open to air as much as possible to promote healing after post-op day number 5 unless told otherwise by your doctor. 3. If you think the wound looks like it is becoming infected (redness or worsening drainage) and/or you are experiencing fever, chill or worsening back pain and muscle spasms, contact the office so that we may evaluate you as soon as possible. B. Complications are uncommon, but please contact us if you have any signs or s ymptoms of: 1. wound infection (fever higher than 102.5 degrees F, redness, separation of wound, drainage, or increasing pain from the incision) 2. blood clots in legs (pain, swelling, redness and warmth in legs) 3. urinary tract infection (fever higher than 102.5 degrees F, burning upon urination or increased frequency of urination) 4. nerve problems (inability to walk on your toes or heels, numbness, loss of bowel or bladder control) 5. any other symptoms that concern you C. Please call the office at if you have any concerns or questions about your operation or recovery. D. No smoking! Smoking drastically decreases the chance of a solid fusion. E. Do not take any anti-inflammatory medications (Indocin, Advil, Motrin, Aspirin, Naprosyn, etc.) as these may inhibit the chance of a solid fusion. Tylenol is okay to take for pain. MANAGING PAIN AFTER SPINAL SURGERY 1. Narcotic medication is intended for short-term use and will be provided for surgical pain. Surgical pain usually lasts for a period of 4-6 weeks. Narcotic medication includes Percocet, Vicodin, Darvocet, Tylenol #3 or Lortab. 2. Longer-term pain is more appropriately treated with non-narcotic medication such as Tylenol ES. 3. Muscle spasm is not appropriately treated with narcotics. Muscle relaxers such as Soma, Flexeril or Skelaxin can be used along with Tylenol ES. 4. Remember that we all live with some "aches and pains". This is not unusual or uncommon after an injury or as we get older. a. Back pain is expected and may include muscle spasms for 4 to 6 weeks after surgery. The pain should gradually improve. If the pain worsens for no apparent reason, please contact the office. b. Intermittent leg pain may also be experienced and should not be concerned about unless it worsens for no apparent reason. If so, please contact the office. 5. We will provide appropriate medication within the normal guidelines of their prescribed use. We will also be very cautious and aware of potential abuse and extended duration of patients' medication needs. a. Pain medications are for your comfort and to assist with sleep and rest so that the tissue can heal. They are not provided in order to return to normal activity and should not be used through the day. To do so or worsening pain at night can result from ongoing tissue damage and development of tolerance to the prescribed medicine. 6. Please allow 2-3 days to process refills. Prescriptions will not be mailed but must be picked up at the office. FOLLOW UP VISIT: Keep your scheduled follow-up appointment. Any questions, please call the office at . Pending Studies at Discharge: No Stand-Alone Forms: My [facility], Smoking Cessation Medications and DC Order Prescriptions: New oxycodone 5 mg tablet 5 mg PO Q6H PRN (Reason: pain, severe) Qty: 30 RF: 0 tramadol 50 mg tablet 50 mg PO Q6H PRN (Reason: pain, moderate) Qty: 30 RF: 0 Continued metformin 500 mg tablet 500 mg PO QAM Qty: 30 RF: 5 lisinopril 5 mg tablet 5 mg PO QAM Qty: 90 RF: 3 benztropine 0.5 mg tablet 0.5 mg PO BID Qty: 180 RF: 1 bupropion HCl 150 mg tablet sustained-release 12 hr 150 mg PO QAM RF: 0 cimetidine 400 mg tablet 800 mg PO QAM RF: 0 paroxetine HCl 30 mg tablet 60 mg PO PM RF: 0 acetaminophen 325 mg Tablet 325 mg PO QID PRN (Reason: Pain) RF: 0 ibuprofen 200 mg Tablet 800 mg PO Q6H PRN (Reason: Pain) RF: 0 cetirizine [Allergy Relief (cetirizine)] 10 mg tablet 10 mg PO QAM RF: 0 atorvastatin 10 mg tablet 10 mg PO QAM RF: 0 levothyroxine 25 mcg tablet 25 mcg PO QAM RF: 0 Discharge Orders: Discharge Order (Routine); Ordered 08/10/20 Ordered By: George Ceja/Other Patient Handouts: High Blood Sugar (Hyperglycemia), Hypoglycemia (Low Blood Sugar), Managing Type 2 Diabetes, 5 Steps for Eating Healthier, Managing Diabetes: The A1C Test Admission Data Admit Date/Time: 08/08/20 12:06 Attending Provider: George John Admit Provider: George John Primary Care Provider: Arsenio Cadena Other Providers: Fan Domingo ; Karla Alvares
== END 2020-08-10 15:46 | disposition home or self-care (01) | DRG 454 ==
LOC: ASU 08:30 → 3E 12:06